=== PATIENT | female | born 1955 | race Caucasian/White ===

== ENCOUNTER → 2016-05-31 | Outpatient (CLI) | payer OTHER ==
[2013-12-24 15:15] VITALS: BP 137/82
[~2016-05-31] MED LIST: ATOR40TA59 PO; CELE200C PO; CHOL500016 PO; DICL25TA PO; FERR-26 PO; KRIL500C PO; LISI1TAB7 PO; MULT1TAB52 PO; WARF5TAB PO; WARF5TAB7 PO
[2016-05-31 19:08] LABS: BF CLARITY HAZY; BF COLOR YELLOW
== END | disposition home or self-care (01) ==
LOC: SPEC 16:28
PROVIDERS: ATTEND Orthopaedic Surgery Sports Medicine
DX: M25.562 Pain in left knee (principal)
CPT/HCPCS: 87205; 89050

== ENCOUNTER → 2017-08-22 | Outpatient (CLI) | payer OTHER | END | disposition home or self-care (01) | LOC: MAMMO 12:10 | DX: Z12.31 Encounter for screening mammogram for malignant neoplasm of breast (principal) | CPT/HCPCS: 77067 ==

== ENCOUNTER → 2018-12-03 | Outpatient (CLI) | payer OTHER ==
[2013-12-24 15:15] VITALS: BP 137/82
[~2018-12-03] MED LIST changes: -FERR-26 PO; +FERR325T14 PO; +LISI1TAB20 PO; -LISI1TAB7 PO; +WARF-31 PO; +WARF-78 PO; -WARF5TAB PO; -WARF5TAB7 PO
--- NOTE | 2018-12-03 13:05 | RAD ---
EXAM: Left lower extremity venous Doppler sonogram. HISTORY: Pain. TECHNIQUE: Iglesias scale and color Doppler sonographic evaluation of the left lower extremity veins with spectral waveform analysis was performed. FINDINGS: There is normal color flow, normal compressibility and there are normal spectral waveforms in the common femoral, superficial femoral, popliteal, posterior tibial and greater saphenous veins. IMPRESSION: No Doppler evidence of lower extremity deep venous thrombosis. Electronically signed by: Yulissa Lafleur MD (12/03/2018 1:02 PM) [place] [id number]
== END | disposition home or self-care (01) ==
LOC: US 12:12
PROVIDERS: ATTEND Orthopaedic Surgery
DX: M25.562 Pain in left knee (principal)
CPT/HCPCS: 93971

== ENCOUNTER → 2018-12-13 | Outpatient (CLI) | payer OTHER ==
[2013-12-24 15:15] VITALS: BP 137/82
--- NOTE | 2018-12-13 15:29 | RAD ---
Three-phase bone scan Clinical indications: Left knee arthroplasty 5 years ago. Bilateral knee pain. TECHNIQUE: After IV infusion of 25 mCi of technetium 99m MDP, three-phase bone scan of both knees was performed. COMPARISON: No previous bone scan available. Radiographic study of both knees dated December 03, 2018. FINDINGS: Hyperemia of the left knee is seen. Increased blood pool activity is seen along the medial aspect of the left knee. Postoperative activity is seen around the prosthesis of the left knee. There are 2 foci of uptake involving the medial distal shaft of the left femur. X-ray does not demonstrate a longstem femoral prosthesis. Therefore, this could represent stress fractures.There is degenerative activity seen involving the medial tibial femoral joint compartment and the patellofemoral joint compartment of the right knee. IMPRESSION: Stress fractures of the distal left femoral shaft. Hyperemia and increased blood pool activity of the left knee which could be related to the stress fractures or cellulitis if there are clinical findings of such. Electronically signed by: Deuce Huerta MD (12/13/2018 3:26 PM) [id number]
== END | disposition home or self-care (01) ==
LOC: NM 09:58
PROVIDERS: ATTEND Orthopaedic Surgery
DX: T84.84XA Pain due to internal orthopedic prosthetic devices, implants and grafts, initial encounter (principal); M84.352A Stress fracture, left femur, initial encounter for fracture; R68.89 Other general symptoms and signs; X58.XXXA Exposure to other specified factors, initial encounter; Y93.89 Activity, other specified; Y92.89 Other specified places as the place of occurrence of the external cause; Y99.8 Other external cause status; Z96.652 Presence of left artificial knee joint
CPT/HCPCS: 36415; 78315; 85651; 86141; A9503